=== PATIENT | male | born 1950 | race Hispanic/Latino ===

== ENCOUNTER 2019-03-30 09:21 | Outpatient (CLI) | payer MEDICARE ==
--- NOTE | 2019-03-30 09:59 | RAD ---
CHEST TWO VIEWS: INDICATIONS: Cough. Fever. FINDINGS: The lung brown appear clear of infiltrate. The heart and mediastinum are unremarkable. The osseous structures are unremarkable. IMPRESSION: No evidence of infiltrate. POS: OFF
== END 2019-03-30 09:22 | disposition home or self-care (01) ==
LOC: BICRAD 09:21
PROVIDERS: ATTEND Family Medicine
DX: J18.9 Pneumonia, unspecified organism (principal)
CPT/HCPCS: 71046